=== PATIENT | female | born 1975 | race Caucasian/White ===

== ENCOUNTER 2021-11-11 10:34 | Emergency (ER) | payer MEDICAID, OTHER ==
[~2021-11-11] VITALS: Ht 170.1 cm; Wt 83.8 kg
[~2021-11-11 10:34] MED LIST: ALPR0.5T72 PO; CHLO25CA41 PO; HYDR-700 PO; LTH300C PO; METR500T PO; ONDN4T PO; OXCA300T PO; PARO20TA57 PO; PROP40TA5 PO; TRAZ150T42 PO; TRZ100T PO
[2021-11-11] MEDS ORDERED: CEPH500T PO (11:02)
--- NOTE | 2021-11-11 11:02 | ED Lower Extremity ---
General Chief Complaint: Lower Extremity Stated Complaint: RT TOE INJ Source: patient Exam Limitations: no limitations History of Present Illness Date Seen by Provider: Nov 11, 2021 Time Seen by Provider: 10:40 Initial Comments 46-year-old female presents for right second toe injury. 3 days ago she was walking and had a hyper flexion type injury when she scraped across the concrete. She had pain and swelling and bleeding since that time. She denies any fevers or chills. No other injury. Pain is dull throbbing worse with ambulation but still somewhat present at rest. No radiation. Mild to moderate. She was concerned because it keeps bleeding every time she walks. She is not on blood thinning medications. Allergies and Home Medications Allergies Coded Allergies: Sulfa (Sulfonamide Antibiotics) (Verified Allergy, Severe, 12/28/10) Patient Home Medication List Home Medication List Reviewed: Yes Cephalexin (Cephalexin) 500 Mg Tablet, 500 MG PO BID Prescribed by: CELESTE HARDEN MD on 11/11/21 110 Hydroxyzine Hcl (Hydroxyzine 25 Mg Tablet) 25 Mg Tablet, 1 EACH PO Q4H PRN, (Reported) Entered as Reported by: CELI ALLEN on 01/01/11 185 Metronidazole (Flagyl 500 Mg) 500 Mg Tab, 1 EACH PO BID, (Reported) Entered as Reported by: CELI ALLEN on 01/01/111852 Ondansetron Hcl (Zofran Po) 4 Mg Tab, 4 MG PO Q4H PRN, (Reported) Entered as Reported by: CELI ALLEN on 01/01/111852 Paroxetine Hcl (Paroxetine Hcl) 20 Mg Tablet, 20 MG PO DAILY, (Reported) Entered as Reported by: SPIKE CHUNG on 12/28/101815 Propranolol Hcl (Propranolol Hcl) 40 Mg Tablet, 40 MG PO BID, (Reported) Entered as Reported by: CELI ALLEN on 01/01/111852 Review of Systems Constitutional: no symptoms reported EENTM: no symptoms reported Respiratory: no symptoms reported Cardiovascular: no symptoms reported Gastrointestinal: no symptoms reported Genitourinary: no symptoms reported Musculoskeletal: other (Right second toe pain) Skin: no symptoms reported, see HPI Psychiatric/Neurological: No Symptoms Reported Past Hmripki-Mgvguy-Ngtldg Hx Patient Social History Tobacco Use?: Yes Tobacco type used: Cigarettes Smoking Status: Current Everyday Smoker Substance use?: No Alcohol Use?: Yes Alcohol Frequency: Once in a while Pt feels they are or have been: No Immunizations Up To Date First/Initial COVID19 Vaccinat: Yes Second COVID19 Vaccination Saul: Yes Third COVID19 Vaccination Date: Yes 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 oz. kg; BMI Method: General Appearance: no apparent distress HEENT: PERRL/EOMI, normal ENT inspection, pharynx normal Neck: non-tender, full range of motion, supple, normal inspection Cardiovascular: regular rate, rhythm, no edema, no gallop, no JVD, no murmur Respiratory: chest non-tender, lungs clear, normal breath sounds, no respiratory distress, no accessory muscle use Gastrointestinal: normal bowel sounds, non tender, soft, no organomegaly, no pulsatile mass Back: normal inspection, no CVA tenderness, no vertebral tenderness Hips: bilateral hip non-tender Legs: bilateral leg non-tender Knees: bilateral knee non-tender Ankles: bilateral ankle non-tender Feet: right foot pain (Right second toe pain with swelling and bruising. There are some erythema up to the PIP that toe. On the lateral aspect of the toe there is a paronychia.) Neurologic/Tendon: normal sensation, normal motor functions, normal tendon functions Neurologic/Psychiatric: alert, normal mood/affect, oriented x 3 Skin: other (Bruising and redness as described above) Progress/Results/Core Measures Results/Orders My Orders Orders - CELESTE HARDEN DO Foot 3 View Right (11/11/21 10:57) Vital Signs/I&O 11/11/21 10:44 Temp 35.8 Pulse 100 Resp 16 B/P (MAP) 138/99 (112) Pulse Ox 99 O2 Delivery Room Air Diagnostic Imaging Diagonstic Imaging: Xray Plain Films/CT/US/NM/MRI: other (right Foot) Comments Negative for acute Departure Communication (Admissions) Patient is hemodynamically stable. X-rays negative. Paronychia treated with antibiotics as it is already draining and has some surrounding cellulitis. Discharged in stable condition. Impression Primary Impression: Paronychia Additional Impression: Toe pain, right Disposition: HOME, SELF-CARE Condition: Stable Departure-Patient Inst. Referrals: SRUTHI PEREZ DIGITAL COMMUNICATIONS MANAGER (PCP) Primary Care Physician NO,LOCAL PHYSICIAN (Family) Primary Care Physician Patient Instructions: Paronychia Add. Discharge Instructions: Take the antibiotics as prescribed until they are gone. Use Motrin or Tylenol for pain. All discharge instructions reviewed with patient and/or family. Voiced understanding. Scripts Cephalexin (Cephalexin) 500 Mg Tablet 500 MG PO BID for 5 Days, #10 TAB Prov: CELESTE HARDEN DO 11/11/21 CELESTE HARDEN DO Nov 11, 2021 11:02
[2021-11-11 11:12] VITALS: BP 138/99
--- NOTE | 2021-11-11 11:21 | Diagnostic Imaging Report ---
HISTORY: Right 2nd toe pain, injury. COMPARISON: None TECHNIQUE: 3 views of the right foot FINDINGS: There is a nondisplaced extraarticular fracture of the right 2nd toe distal phalangeal tuft. There is soft tissue swelling about the right 2nd toe. Alignment is normal. Joint spaces are preserved. IMPRESSION: 1. Nondisplaced fracture of the right 2nd toe distal phalanx. Dictated by: Dictated on workstation # [id number]
== END 2021-11-11 11:12 | disposition home or self-care (01) ==
LOC: EDUNIT# 10:34 → ER FS 10:40
DX: L03.031 Cellulitis of right toe (principal); F17.210 Nicotine dependence, cigarettes, uncomplicated; Z88.2 Allergy status to sulfonamides
CPT/HCPCS: 73630

== ENCOUNTER 2022-01-15 17:31 | Emergency (ER) | payer MEDICAID ==
[~2022-01-15] VITALS: Ht 170.1 cm; Wt 88.3 kg
[~2022-01-15 17:31] MED LIST changes: +CEPH500T PO
--- NOTE | 2022-01-15 17:39 | ED Cough/URI ---
General Chief Complaint: COVID19 Suspect/Confirmed Stated Complaint: SOB; COUGH History of Present Illness Date Seen by Provider: Jan 15, 2022 Time Seen by Provider: 17:39 Initial Comments 46-year-old female presents with cough this been going on for about 5 days. She has some congestion, she had a sore throat for couple days from the "cough" she reports she had a fever today. She feels short of breath. She presents because she just wants to be checked out. Patient denies any nausea, vomiting, diarr hea. Allergies and Home Medications Allergies Coded Allergies: Sulfa (Sulfonamide Antibiotics) (Verified Allergy, Severe, 12/28/10) Patient Home Medication List Home Medication List Reviewed: Yes Cephalexin (Cephalexin) 500 Mg Tablet, 500 MG PO BID Prescribed by: CELESTE HARDEN MD on 11/11/21 110 Hydroxyzine Hcl (Hydroxyzine 25 Mg Tablet) 25 Mg Tablet, 1 EACH PO Q4H PRN, (Reported) Entered as Reported by: CELI ALLEN on 01/01/111852 Metronidazole (Flagyl 500 Mg) 500 Mg Tab, 1 EACH PO BID, (Reported) Entered as Reported by: CELI ALLEN on 01/01/111852 Ondansetron Hcl (Zofran Po) 4 Mg Tab, 4 MG PO Q4H PRN, (Reported) Entered as Reported by: CELI ALLEN on 01/01/111852 Paroxetine Hcl (Paroxetine Hcl) 20 Mg Tablet, 20 MG PO DAILY, (Reported) Entered as Reported by: SPIKE CHUNG on 12/28/10 181 Propranolol Hcl (Propranolol Hcl) 40 Mg Tablet, 40 MG PO BID, (Reported) Entered as Reported by: CELI ALLEN on 01/01/111852 Review of Systems Review of Systems Constitutional: chills, fever, malaise EENTM: throat pain Respiratory: cough; No phlegm; short of breath; No wheezing Cardiovascular: No chest pain, No palpitations Gastrointestinal: No abdominal pain, No diarrhea, No nausea, No vomiting Genitourinary: no symptoms reported Musculoskeletal: no symptoms reported Skin: no symptoms reported Psychiatric/Neurological: No Symptoms Reported Past Qtaerib-Esdzbj-Jpffhj Hx Immunizations Up To Date First/Initial COVID19 Vaccinat: Yes Second COVID19 Vaccination Saul: Yes Third COVID19 Vaccination Date: Yes Past Medical History Surgery/Hospitalization HX: HTN; GERD; Depression Reproductive Disorders: No Family Medical History No Pertinent Family Hx Physical Exam Vital Signs - First Documented 01/15/22 17:40 Temp 36.2 Pulse 102 Resp 16 B/P (MAP) 152/112 (125) Pulse Ox 99 O2 Delivery Room Air Capillary Refill : Height: '" Weight: lbs. oz. kg; 28.00 BMI Method: General Appearance: no apparent distress HEENT: PERRL/EOMI Neck: full range of motion, supple Respiratory: lungs clear, normal breath sounds Cardiovascular: normal peripheral pulses, tachycardia Gastrointestinal: non tender, soft Extremities: non-tender, normal inspection Neurologic/Psychiatric: alert, normal mood/affect, oriented x 3 Skin: normal color, warm/dry Progress/Results/Core Measures Suspected Sepsis SIRS Temperature: Pulse: Respiratory Rate: Blood Pressure / Mean: Results/Orders Lab Results Laboratory Tests Test 01/15/22 17:45 Range/Units Influenza Type A (RT-PCR) Not Detected Not Detecte Influenza Type B (RT-PCR) Not Detected Not Detecte SARS-CoV-2 RNA (RT-PCR) Not Detected Not Detecte My Orders Orders - ELLE AGUILAR DO Influenza A And B By Pcr (01/15/22 17:42) Covid 19 Inhouse Test (01/15/22 17:42) Chest Pa/Lat (2 View) (01/15/22 17:42) Vital Signs/I&O 01/15/22 01/15/22 17:40 18:17 Temp 36.2 36.2 Pulse 102 87 Resp 16 16 B/P (MAP) 152/112 (125) 144/98 Pulse Ox 99 99 O2 Delivery Room Air Room Air Capillary Refill : Progress Note : Progress Note Patient's x-ray shows no acute pneumonia or findings. Negative for COVID and influenza. Patient with likely viral bronchitis. Discussed with her supportive care. Patient stable and discharged home Departure Impression Primary Impression: Acute viral bronchitis Disposition: 01 HOME, SELF-CARE Condition: Stable Departure-Patient Inst. Referrals: SRUTHI PEREZ GERONTOLOGICAL NURSE PRACTITIONER (PCP) Primary Care Physician NO,LOCAL PHYSICIAN (Family) Primary Care Physician Patient Instructions: Bronchitis, Adult ED, Preventing Antibiotic Resistance Add. Discharge Instructions: Honey or other [id number]-kwp-[id number] medication as needed for cough Drink plenty of fluids Follow with your primary care provider in 5 to 7 days if symptoms or not improved or significantly worsen All discharge instructions reviewed with patient and/or family. Voiced understanding. ELLE AGUILAR DO Jan 15, 2022 17:39
[2022-01-15 18:17] VITALS: BP 144/98
--- NOTE | 2022-01-15 18:24 | Diagnostic Imaging Report ---
INDICATION: Cough, shortness of breath. FINDINGS: Air trapping and COPD, chronic. No focal consolidation, failure, effusion or pneumothorax. Hilar and mediastinal contours normal. Some mild prominence of the interstitial lung markings, bilaterally, likely chronic. IMPRESSION: Features of COPD with air trapping and likely mild chronic interstitial disease. No consolidating pneumonia, failure, effusion or pneumothorax. Dictated by: Dictated on workstation # [id number]
== END 2022-01-15 18:17 | disposition home or self-care (01) ==
LOC: EDUNIT# 17:31 → ER FS 17:32
DX: J20.8 Acute bronchitis due to other specified organisms (principal); Z20.822 Contact with and (suspected) exposure to COVID-19
CPT/HCPCS: 71046; 87636

== ENCOUNTER 2022-01-30 15:59 | Emergency (ER) | payer MEDICAID ==
[~2022-01-30] VITALS: Ht 170.2 cm; Wt 74.8 kg
[2022-01-30] MEDS ORDERED: fentaNYL INJ 100 MCG/2 ML AMP IVP ONE (17:30)
[2022-01-30] MEDS ORDERED: ONDANSETRON 4 MG/2 ML (SDV) Z0FRAN IVP ONE (17:30)
[2022-01-30 17:33] LABS: BILIRUBIN,URINE NEGATIVE (NEGATIVE); CLARITY,URINE CLEAR; COLOR,URINE YELLOW; GLUCOSE, URINE (UA) NEGATIVE (NEGATIVE); KETONES,URINE NEGATIVE (NEGATIVE); LEUKOCYTE ESTERASE ,URINE NEGATIVE (NEGATIVE); NITRITE,URINE NEGATIVE (NEGATIVE); PROTEIN,URINE NEGATIVE (NEGATIVE)
[2022-01-30 17:44] LABS: BACTERIA,URINE TRACE /HPF; RBC,URINE RARE /HPF
[2022-01-30 17:47] LABS: BASOPHILS # (AUTO) 0.1 10^3/uL (0.0-0.1); BASOPHILS % (AUTO) 1 % (0-10); EOSINOPHILS # (AUTO) 0.5 10^3/uL (0.0-0.3); EOSINOPHILS % (AUTO) 4 % (0-10); HEMATOCRIT 41 % (35-52); HEMOGLOBIN 13.7 g/dL (11.5-16.0); LYMPHOCYTES # (AUTO) 3.9 10^3/uL (1.0-4.0); LYMPHOCYTES % (AUTO) 35 % (12-44); MEAN CORPUSCULAR HEMOGLOBIN 22 pg (25-34); MEAN CORPUSCULAR HGB CONC 33 g/dL (32-36); MEAN CORPUSCULAR VOLUME 67 fL (80-99); MEAN PLATELET VOLUME 8.3 fL (9.0-12.2); MONOCYTES # (AUTO) 0.5 10^3/uL (0.0-1.0); MONOCYTES % (AUTO) 5 % (0-12); NEUTROPHILS # (AUTO) 6.3 10^3/uL (1.8-7.8); NEUTROPHILS % (AUTO) 55 % (42-75); PLATELET COUNT 420 10^3/uL (130-400); WHITE BLOOD COUNT 11.3 10^3/uL (4.3-11.0)
[2022-01-30] MEDS ORDERED: CATHETER FLUSH 10 ML SYR IV PRN (18:15)
[2022-01-30] MEDS ORDERED: IOHEXOL 350 MG/ML 100 ML (OMNIPAQUE 350) VIAL IV ONE (18:15)
[2022-01-30] MEDS ORDERED: HOLD METFORMIN - RECEIVED CONTRAST 20 ML VIAL IV SCH (18:15)
[2022-01-30] MEDS ORDERED: NS 100 ML (IVPB) BAG IV ONE (18:15)
[2022-01-30 18:22] LABS: CARBON DIOXIDE 21 MMOL/L (21-32); CHLORIDE 96 MMOL/L (98-107); POTASSIUM 4.3 MMOL/L (3.6-5.0); SODIUM 134 MMOL/L (135-145)
[2022-01-30 18:23] LABS: ALANINE AMINOTRANSFERASE 53 U/L (0-55); ALBUMIN 4.7 GM/DL (3.2-4.5); ALKALINE PHOSPHATASE 114 U/L (40-136); BILIRUBIN,TOTAL 0.2 MG/DL (0.1-1.0); BUN/CREATININE RATIO 15; CALCIUM 9.6 MG/DL (8.5-10.1); GFR ESTIMATED 70; GLUCOSE 108 MG/DL (70-105); LIPASE 27 U/L (8-78); TOTAL PROTEIN 7.8 GM/DL (6.4-8.2)
--- NOTE | 2022-01-30 18:28 | ED Chest Pain ---
General Chief Complaint: Chest Wall Stated Complaint: R SIDE RIB PAIN Nursing Triage Note: PT AMBULATE TO ROOM FS06 WITHOUT DIFFICULTY WITH C/O RIGHT SIDE RIB PAIN. PT REPORTS PAIN DECREASES WHEN SHE LIFTS RIGHT ARM ABOVE HEAD. Source: patient Exam Limitations: no limitations History of Present Illness Date Seen by Provider: Jan 30, 2022 Time Seen by Provider: 18:00 Initial Comments Patient is a 46-year-old female with history of cholecystectomy presents with right upper quadrant quadrant pain/tenderness starting approximately 3 hours prior to arrival pain is sharp, moderate to severe and localized. Patient states it is worse with movement and improved with raising her hand overhead. S he denies nausea vomiting shortness of breath, cough, chest pain. No fever chills or sweats. No flank pain. No other acute symptoms or complaints Timing/Duration: 4-6 hours Severity/Quality: severe Location: other Radiation: other Activities at Onset: other Prior CP/Workup: other Allergies and Home Medications Allergies Coded Allergies: Sulfa (Sulfonamide Antibiotics) (Verified Allergy, Severe, 12/28/10) Patient Home Medication List Home Medication List Reviewed: Yes Cephalexin (Cephalexin) 500 Mg Tablet, 500 MG PO BID Prescribed by: CELESTE HARDEN MD on 11/11/21 110 Hydroxyzine Hcl (Hydroxyzine 25 Mg Tablet) 25 Mg Tablet, 1 EACH PO Q4H PRN, (Reported) Entered as Reported by: CELI ALLEN on 01/01/111852 Metronidazole (Flagyl 500 Mg) 500 Mg Tab, 1 EACH PO BID, (Reported) Entered as Reported by: CELI ALLEN on 01/01/111852 Ondansetron Hcl (Zofran Po) 4 Mg Tab, 4 MG PO Q4H PRN, (Reported) Entered as Reported by: CELI ALLEN on 01/01/111852 Paroxetine Hcl (Paroxetine Hcl) 20 Mg Tablet, 20 MG PO DAILY, (Reported) Entered as Reported by: SPIKE CHUNG on 12/28/101815 Propranolol Hcl (Propranolol Hcl) 40 Mg Tablet, 40 MG PO BID, (Reported) Entered as Reported by: CELI ALLEN on 01/01/11 185 Review of Systems Review of Systems Constitutional: see HPI EENTM: See HPI Respiratory: See HPI Cardiovascular: See HPI Gastrointestinal: See HPI Genitourinary: See HPI Musculoskeletal: see HPI Skin: see HPI Psychiatric/Neurological: See HPI Endocrine: See HPI Hematologic/Lymphatic: See HPI All Other Systems Reviewed Negative Unless Noted: No Past Zlkxfia-Oihgvl-Viahdj Hx Patient Social History Tobacco Use?: Yes Tobacco type used: Cigarettes Smoking Status: Current Everyday Smoker Smokeless Tobacco Frequency: Never a User Use of E-Cig and/or Vaping dev: No Use of E-Cig and/or Vaping Gilbert: Never a User Substance use?: No Alcohol Use?: Yes Alcohol Frequency: Couple times a week Pt feels they are or have been: No Immunizations Up To Date First/Initial COVID19 Vaccinat: Yes Second COVID19 Vaccination Saul: Yes Third COVID19 Vaccination Date: Yes 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 oz. kg; 25.00 BMI Method: General Appearance: Moderate Distress HEENT: PERRL/EOMI, Normal ENT Inspection, Pharynx Normal Neck: Full Range of Motion, Normal Inspection Respiratory: Lungs Clear Cardiovascular: Regular Rate, Rhythm Gastrointestinal: Soft, Tenderness (Right upper quadrant tenderness, no palpable hernia or abdominal wall defect) Neurologic/Psychiatric: Oriented x3, Normal Mood/Affect Skin: Normal Color, Warm/Dry Focused Exam Sepsis Stage: Ruled Out Progress/Results/Core Measures Results/Orders Lab Results Laboratory Tests Test 01/30/22 16:55 01/30/22 17:35 Range/Units Urine Color YELLOW Urine Clarity CLEAR Urine pH 6.0 5-9 Urine Specific [place] 1.010 L 1.016-1.022 Urine Protein NEGATIVE NEGATIVE Urine Glucose (UA) NEGATIVE NEGATIVE Urine Ketones NEGATIVE NEGATIVE Urine Nitrite NEGATIVE NEGATIVE Urine Bilirubin NEGATIVE NEGATIVE Urine Urobilinogen 0.2 < = 1.0 MG/DL Urine Leukocyte Esterase NEGATIVE NEGATIVE Urine RBC (Auto) TRACE-I H NEGATIVE Urine RBC RARE /HPF Urine WBC NONE /HPF Urine Squamous Epithelial Cells 5-10 /HPF Urine Crystals NONE /LPF Urine Bacteria TRACE /HPF Urine Casts NONE /LPF Urine Mucus NEGATIVE /LPF Urine Culture Indicated NO White Blood Count 11.3 H 4.3-11.0 10^3/uL Red Blood Count 6.16 H 3.80-5.11 10^6/uL Hemoglobin 13.7 11.5-16.0 g/dL Hematocrit 41 35-52 % Mean Corpuscular Volume 67 L 80-99 fL Mean Corpuscular Hemoglobin 22 L 25-34 pg Mean Corpuscular Hemoglobin Concent 33 32-36 g/dL Red Cell Distribution Width 16.3 H 10.0-14.5 % Platelet Count 420 H 130-400 10^3/uL Mean Platelet Volume 8.3 L 9.0-12.2 fL Immature Granulocyte % (Auto) 0 % Neutrophils (%) (Auto) 55 42-75 % Lymphocytes (%) (Auto) 35 12-44 % Monocytes (%) (Auto) 5 0-12 % Eosinophils (%) (Auto) 4 0-10 % Basophils (%) (Auto) 1 0-10 % Neutrophils # (Auto) 6.3 1.8-7.8 10^3/uL Lymphocytes # (Auto) 3.9 1.0-4.0 10^3/uL Monocytes # (Auto) 0.5 0.0-1.0 10^3/uL Eosinophils # (Auto) 0.5 H 0.0-0.3 10^3/uL Basophils # (Auto) 0.1 0.0-0.1 10^3/uL Immature Granulocyte # (Auto) 0.0 0.0-0.1 10^3/uL Sodium Level 134 L 135-145 MMOL/L Potassium Level 4.3 3.6-5.0 MMOL/L Chloride Level 96 L 98-107 MMOL/L Carbon Dioxide Level 21 21-32 MMOL/L Anion Gap 17 H 5-14 MMOL/L Blood Urea Nitrogen 15 7-18 MG/DL Creatinine 1.00 0.60-1.30 MG/DL Estimat Glomerular Filtration Rate 70 BUN/Creatinine Ratio 15 Glucose Level 108 H 70-105 MG/DL Calcium Level 9.6 8.5-10.1 MG/DL Corrected Calcium 8.5-10.1 MG/DL Total Bilirubin 0.2 0.1-1.0 MG/DL Aspartate Amino Transf (AST/SGOT) 55 H 5-34 U/L Alanine Aminotransferase (ALT/SGPT) 53 0-55 U/L Alkaline Phosphatase 114 40-136 U/L Total Protein 7.8 6.4-8.2 GM/DL Albumin 4.7 H 3.2-4.5 GM/DL Lipase 27 8-78 U/L My Orders Orders - SANDRA HERNANDEZ DO Cbc With Automated Diff (01/30/22 17:27) Comprehensive Metabolic Panel (01/30/22 17:27) Lipase (01/30/22 17:27) Urinalysis (01/30/22 17:27) Fentanyl Inj (Sublimaze Injection) (01/30/22 17:30) Ondansetron Injection (Zofran Injectio (01/30/22 17:30) Ct Abdomen/Pelvis W (01/30/22 17:27) Iohexol Injection (Omnipaque 350 Mg/Ml 1 (01/30/22 18:15) Received Contrast (Hold Metformin- Contr (01/30/22 18:15) Sodium Chloride Flush (Catheter Flush Sy (01/30/22 18:15) Ns (Ivpb) (Sodium Chloride 0.9% Ivpb Bag (01/30/22 18:15) Morphine Injection (Morphine Injection (01/30/22 18:47) Medications Given in ED Current Medications Medications Dose Ordered Sig/Pratik Route Start Time Stop Time Status Last Admin Dose Admin Fentanyl Citrate 50 mcg ONCE ONCE IVP 01/30/22 17:30 01/30/22 17:31 DC 01/30/22 17:40 50 MCG Iohexol 100 ml ONCE ONCE IV 01/30/22 18:15 01/30/22 18:16 DC 01/30/22 18:44 80 ML Ondansetron HCl 4 mg ONCE ONCE IVP 01/30/22 17:30 01/30/22 17:31 DC 01/30/22 17:40 4 MG Sodium Chloride 10 ml NEEDED PRN IV 01/30/22 18:15 01/30/22 18:44 10 ML Sodium Chloride 100 ml ONCE ONCE IV 01/30/22 18:15 01/30/22 18:16 DC 01/30/22 18:44 100 ML Vital Signs/I&O 01/30/22 16:50 Temp 36.8 Pulse 87 Resp 20 B/P (MAP) 141/92 (108) O2 Delivery Room Air Blood Pressure Mean: 108 Departure Communication (Admissions) CT abdomen pelvis: No acute findings per radiology report. Lab and imaging studies reviewed. Abdomen is soft, non-sx on recheck. No diagnosis is made. Recommendations are for supportive care and PCP f/u/ Return precautions are reviewed. Patient verbalizes understanding and agreement with discharge instructions. Impression Primary Impression: Abdominal wall pain Disposition: HOME, SELF-CARE Condition: Stable Departure-Patient Inst. Decision time for Depature: 19:20 Referrals: SRUTHI PEREZ (PCP) Primary Care Physician NO,LOCAL PHYSICIAN (Family) Primary Care Physician Patient Instructions: Abdominal Pain, Adult ED Add. Discharge Instructions: You were evaluated in the ED for abdominal pain. Lab and imaging studies were performed and are non-diagnostic. Please go home and rest. Avoid heavy lifting and strenuous activity. Follow up with your PCP in 2-3 days for re-evaluation if symptoms persist. Return to the ED if new or worsening symptoms. All discharge instructions reviewed with patient and/or family. Voiced understanding. Scripts Tramadol HCl (Tramadol HCl) 50 Mg Tablet 50 MG PO Q6H PRN for PAIN for 3 Days, #12 TAB 0 Refills Prov: SANDRA HERNANDEZ DO 01/30/22 SANDRA HERNANDEZ DO Jan 30, 2022 18:28
[2022-01-30] MEDS ORDERED: morphine INJ 10 MG/ML 1ML (SYR OR VIAL) IVP STA (18:47)
--- NOTE | 2022-01-30 19:00 | Diagnostic Imaging Report ---
CT ABDOMEN/PELVIS W TECHNIQUE: Multiple contiguous axial images were obtained through the abdomen and pelvis after administration of intravenous contrast. All CT scans use one or more of the following dose optimizing techniques: automated exposure control, MA and/or KvP adjustment based on patient size and exam type or iterative reconstruction. INDICATION: Right upper quadrant pain COMPARISON: None available. FINDINGS: Lower chest: The lung bases are clear. No pericardial or pleural effusion. Peritoneum: No free intraperitoneal air or fluid. Liver and biliary system: Liver is enlarged measuring 19 cm and has diffuse hypoattenuation indicative of steatosis. No focal lesion. Cholecystectomy. No biliary duct dilatation. Spleen and Pancreas: Spleen is normal. The pancreas enhances normally without mass lesion or peripancreatic inflammatory changes. Adrenals: Normal. tract: The kidneys enhance normally without suspicious mass or obstruction. Urinary bladder is distended without wall thickening. Hysterectomy. No adnexal mass. GI tract: Stomach is partially filled with fluid. No bowel obstruction. No pericolonic inflammatory changes. Normal appendix. Vasculature and Lymph nodes: Normal caliber aorta. No abdominal or pelvic lymphadenopathy. Musculoskeletal: Focally advanced degenerative disc disease at L5-S1. IMPRESSION: 1. No acute obstructive or inflammatory process. 2. Hepatomegaly with diffuse steatosis. 3. Cholecystectomy. Dictated by: Dictated on workstation # [id number]
[2022-01-30] MEDS ORDERED: TRM50T PO (19:26)
[2022-01-30 20:45] VITALS: BP 185/71
== END 2022-01-30 19:50 | disposition home or self-care (01) ==
LOC: EDUNIT# 15:59 → ER FS 16:00
DX: R10.11 Right upper quadrant pain (principal); F17.210 Nicotine dependence, cigarettes, uncomplicated; Z90.49 Acquired absence of other specified parts of digestive tract
CPT/HCPCS: 36415; 74177; 80053; 81000; 83690; 85025; Q9967